=== PATIENT | male | born 1950 | race Caucasian/White ===

== ENCOUNTER 2017-03-17 08:29 | Emergency (ER) | payer OTHER ==
[2017-03-17 08:39] VITALS: BP 131/74; PULSE 70; RESP 16; TEMP 97.7; O2SAT 97
[2017-03-17] MEDS ORDERED: FLUORESCEIN SODIUM 1 MG STRIP OP ONE ×2 (08:50→09:11)
[2017-03-17] MEDS ORDERED: PROPARACAINE 0.5% 15 ML OPHT DROP ONE (08:50)
[2017-03-17] MEDS ORDERED: PROPARACAINE 0.5% 15 ML OPHT DROP RTEYE ONE (09:10)
[2017-03-17] MEDS ORDERED: ERYTHROMYCIN 0.5% 1 GM OPHT.OINT RTEYE ONE (09:32)
--- NOTE | 2017-03-17 09:36 | EDPHY ---
General Narrative: CHIEF COMPLAINT: Foreign body right eye HISTORY OF PRESENT ILLNESS: Patient complains of foreign body in the right eye. He says he was driving home with some wood slabs in his vehicle. Either during the front end driver when loading them that was a piece of the wood that he thinks landed in the right eye. He has felt a foreign body sensation since that time. It is described as in knowing to have but not painful. He has had no change in vision. He has had no headache. No fever chills. No nausea or vomiting. Has had some watering of the right eye. At this time he feels that it is in the lower eyelid on the right. No other associated complaints or modifying factors. Tetanus is up-to-date. REVIEW OF SYSTEMS: Ten systems reviewed and are negative unless otherwise noted in the HPI PAST MEDICAL HISTORY: Reviewed PAST SURGICAL HISTORY: Reviewed SOCIAL HISTORY: Nonsmoker. 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 No hyphema. No subconjunctival hemorrhage. Stain exam: There is a small amount of uptake in the right eye at the 9 o' clock position just outside the field of view. There is a foreign body in the right lower eyelid consistent with wood pulp. This was removed with tweezers without incident. No foreign body in the conjunctiva. No rust ring. No branching lesions noted. The lid was everted. Skin: Warm and dry, no rash Extremities: Nontender, no pedal edema DIFFERENTIAL DIAGNOSES: Including but not limited to foreign body, corneal abrasion, conjunctival abrasion MDM: 9:34 a.m. Foreign body on the right lower eyelid. There was no foreign body the conjunctiva. The upper eyelid was everted. There is a small, conjunctival abrasion on the right eye, laterally at the 9 o'clock position. There was no corneal abrasion. I will treat him with erythromycin. I will have him contact Ophthalmology for follow-up later today or Monday for definitive care. ED precautions for any pain, redness of the eye or changes in vision. Erythromycin to completion. He is comfortable this plan and discharged in stable condition. - History Smoking Status: Never smoked - Objective Vital Signs: Initial Vital Signs Temperature (C) 97.7 F 03/17/17 08:35 Heart Rate 70 03/17/17 08:35 Respiratory Rate 16 03/17/17 08:35 Blood Pressure 131/74 H 03/17/17 08:35 O2 Sat (%) 97 03/17/17 08:35 O2 Delivery Mode Room Air Allergies/Adverse Reactions: aloe vera [Aloe Vera] Allergy (Intermediate, Verified 07/14/10 17:45) Itching cyclobenzaprine HCl [From Flexeril] Allergy (Mild, Verified 07/14/10 17:42) Other-Enter Comments sulfamethoxazole [From Septra] Allergy (Mild, Verified 07/14/10 17:42) Other-Enter Comments tetracycline [Tetracycline] Allergy (Mild, Verified 07/14/10 17:45) Other-Enter Comments trimethoprim [From Septra] Allergy (Mild, Verified 07/14/10 17:42) Other-Enter Comments METHYLCHLOROISOTHIAZOLINONE Allergy (Intermediate, Uncoded 07/14/10 17:45) Itching METHYLISOTHIAZOLINONE Allergy (Intermediate, Uncoded 07/14/10 17:45) Itching Home Medications: Medication Instructions Recorded NK [No Known Home Meds] 03/17/17 Medications Given: Discontinued Medications Erythromycin (Erythromycin 0.5%) 1 jeremie RTEYE ONCE ONE Stop: 03/17/17 09:33 Last Admin: 03/17/17 09:39 Dose: 1 jeremie Fluorescein Sodium (Ynmos-B-Ennhn) 1 mg OP EDNOW ONE Stop: 03/17/17 09:12 Last Admin: 03/17/17 09:43 Dose: 1 mg Proparacaine HCl (Alcaine 0.5%) 1 drops RTEYE ONCE ONE Stop: 03/17/17 09:11 Last Admin: 03/17/17 09:39 Dose: 1 drops Departure - Departure Disposition: Home, Routine, Self-Care Clinical Impression: Foreign body of eyelid, right Conjunctival abrasion Qualifiers: Encounter type: initial encounter Laterality: right Qualified Code(s): S05.01XA - Injury of conjunctiva and corneal abrasion without foreign body, right eye, initial encounter Condition: Good Instructions: Corneal Abrasion (ED), Eye Foreign Body (ED) Additional Instructions: 1. Contact Ophthalmology for follow-up today or Monday 2. ED precautions as discussed Referrals: Kacie Cervantes MD [Primary Care Provider] - As per Instructions Fred Mcclendon MD [Medical Doctor] - As per Instructions
== END 2017-03-17 09:52 | disposition home or self-care (01) ==
DX: T15.91XA Foreign body on external eye, part unspecified, right eye, initial encounter (principal); S05.01XA Injury of conjunctiva and corneal abrasion without foreign body, right eye, initial encounter; W22.8XXA Striking against or struck by other objects, initial encounter; Y99.8 Other external cause status; Y93.89 Activity, other specified